=== PATIENT | male | born 1995 | race Hispanic/Latino ===

== ENCOUNTER 2016-12-20 10:41 | Emergency (ER) | payer OTHER ==
[2016-12-20] MEDS ORDERED: LIDOCAINE 1% 50 ML VIAL INJ ONE (10:53)
[2016-12-20] MEDS ORDERED: LIDOCAINE 1% 10 ML VIAL INJ ONE (10:53)
--- NOTE | 2016-12-20 11:04 | ED.PDOC ---
History of Present Illness - General Chief Complaint: Upper Extremity Injury Stated Complaint: finger cut with table saw Time Seen by Provider: 12/20/16 11:01 Source: patient Exam Limitations: no limitations - History of Present Illness Initial Comments: Davion Mancera Pair 21 y/o male accidentally injure his left middle finger at work [employer] /window with table saw-laceration. Occurred: just prior to arrival Pain - Upper Extremity: severe: Hand, left - left middle finger Method of Injury: incised Improving Factors: rest Worsening Factors: movement Allergies/Adverse Reactions: Allergies NO KNOWN ALLERGY Allergy (Unverified 12/02/12 13:44) Home Medications: Ambulatory Orders Acetaminophen W/ Codeine [Tylenol W/ CODEINE #3] 1 ea PO Q4HR #20 12/20/16 Cephalexin 1,000 mg PO BID #30 cap 12/20/16 Review of Systems - Review of Systems Constitutional: States: no symptoms reported EENTM: States: no symptoms reported Respiratory: States: no symptoms reported Cardiology: States: no symptoms reported Musculoskeletal: States: see HPI Skin: States: see HPI Past Medical History (General) - Patient Medical History Hx Seizures: No Hx Asthma: No Hx Hypertension: No Hx Gastroesophageal Reflux: No Hx MRSA: No Family Medical History - Family History Father Family History: No Known Mother Family History: No Known Physical Exam - Physical Exam General Appearance: Alert, No apparent distress Eyes, Ears, Nose, Throat Exam: PERRL/EOMI, TMs normal Neck: supple Cardiovascular/Respiratory: regular rate, rhythm, no M/R/G, normal breath sounds Abdominal Exam: non-tender, no organomegaly Back Exam: no vertebral tenderness Elbow/Forearm Exam: no evidence of injury Wrist Exam: no evidence of injury Hand Exam: deformity, laceration - partial tissue loss /nail avulsion half of distal phalanx dorsal aspect left middle finger, nail injury Neuro/Tendon: normal sensation, normal motor functions Mental Status: alert, oriented x 3 Skin Exam: normal color, warm/dry Progress - Progress Progress: 12/20/16 11:43 Vital Signs - 8 hr 12/20/16 10:43 Temperature 98.9 F Pulse Rate [ 86 right brachial] Respiratory 18 Rate Blood Pressure 148/82 [right brachial ] O2 Sat by Pulse 96 Oximetry - EKG/XRAY/CT XRAY: middle finger left-partial avulsion/open fracture distal phalanx middle finger Departure - Departure Clinical Impression: Fingernail avulsion, partial Qualifiers: Encounter type: initial encounter Qualified Code(s): S61.309A - Unspecified open wound of unspecified finger with damage to nail, initial encounter Finger fracture, left Qualifiers: Encounter type: initial encounter Finger: middle finger Fracture type: open Phalanx: distal Fracture alignment: nondisplaced Qualified Code(s): S62.663B - Nondisplaced fracture of distal phalanx of left middle finger, initial encounter for open fracture Time of Disposition: 11:12 Disposition: Discharge to Home or Self Care Condition: Fair Departure Forms: ED Discharge - Pt. Copy, Patient Portal Self Enrollment Instructions: DI for Nail Avulsion Injury, DI for Avulsion Fracture Prescriptions: Acetaminophen W/ Codeine [Tylenol W/ CODEINE #3] 1 ea PO Q4HR #20 Cephalexin 1,000 mg PO BID #30 cap Home Medications: Ambulatory Orders Acetaminophen W/ Codeine [Tylenol W/ CODEINE #3] 1 ea PO Q4HR #20 12/20/16 Cephalexin 1,000 mg PO BID #30 cap 12/20/16 Additional Instructions: NEED TO CALL (hand specialist) Friday12/23/2016 nurse had md phone number -patient to call Transfer to Outside Facility - Transfer Information Accepting Facility: [facility] Reason for Transfer: required specialist not available
[2016-12-20 11:07] VITALS: TEMP 98.9
[2016-12-20] MEDS ORDERED: ceFAZolin SODIUM 1 GM VIAL IM ONE (11:12)
[2016-12-20] MEDS ORDERED: TETANUS,DIPHTHERIA,PERTUSSIS 1 EA SYG IM ONE (11:12)
--- NOTE | 2016-12-20 11:26 | RAD ---
EXAM DESCRIPTION: Fingers,Left CLINICAL HISTORY: 21 years Male, table saw injury COMPARISON: None. FINDINGS: Three-view left third digit demonstrate partial amputation of the tip of the third digit through the midportion of the tuft of the third distal phalanx. Obvious soft tissue defect. No radiopaque foreign body. IMPRESSION: Acute partial amputation/open fracture Electronically signed by: Juanito Mancini MD 12/20/2016 11:25 AM CDT
[2016-12-20] MEDS ORDERED: HYDROcodone 10MG/APAP 325MG 1 EA TAB PO ONE (11:42)
[2016-12-20] MEDS ORDERED: IBUPROFEN 200 MG TAB PO ONE (11:49)
[2016-12-20 12:13] VITALS: BP 146/71; O2SAT 99
== END 2016-12-20 12:08 | disposition home or self-care (01) ==
LOC: ER 10:41
DX: S62.663B Nondisplaced fracture of distal phalanx of left middle finger, initial encounter for open fracture (principal); Z23 Encounter for immunization; W29.8XXA Contact with other powered hand tools and household machinery, initial encounter; Y92.69 Other specified industrial and construction area as the place of occurrence of the external cause; Y99.0 Civilian activity done for income or pay
CPT/HCPCS: 73140; 90471; 90715; J0690

== ENCOUNTER → 2017-10-28 | Outpatient (CLI) | payer OTHER ==
--- NOTE | 2017-10-28 15:55 | RAD ---
EXAM DESCRIPTION: Ankle,Left 2 Views CLINICAL HISTORY: 22 years Male, LEFT ANKLE INJURY COMPARISON: None available. TECHNIQUE: AP and lateral radiographs. FINDINGS: The visualized bones appear well mineralized. No acute fracture or dislocation. Significant lateral soft tissue swelling is noted. IMPRESSION: Significant lateral soft tissue swelling is noted. Electronically signed by: Yusuf Altman MD 10/28/2017 3:54 PM CDT
== END ==
LOC: RAD 15:13
PROVIDERS: ATTEND Nurse Practitioner Family
DX: S95.80 Unspecified injury of other blood vessels at ankle and foot level (principal)

== ENCOUNTER 2019-06-18 09:07 | Emergency (ER) | payer SELFPAY ==
[2019-06-18] MEDS ORDERED: KETOROLAC TROMETHAMINE INJ 30 MG/ML VIAL IV ONE (09:16)
[2019-06-18] MEDS ORDERED: ONDANSETRON INJ 4 MG/2 ML VIAL IV ONE (09:16)
--- NOTE | 2019-06-18 09:20 | ED.PDOC ---
History of Present Illness - General Chief Complaint: Problem Stated Complaint: Bilat flank pain, painful urination Time Seen by Provider: 06/18/19 09:14 Source: patient Additional Information: 19yo M presents with acute L sided flank pain onset today. The patient reports the pain is cramping in nature and radiates from the back to the front. He has hx of similar pain with renal stones. Pt has extensive hx of past renal stone issues. No associated fever, cough, congestion, diarrhea or discharge. No other reported issues. - History of Present Illness Timing/Duration: this morning Quality: moderate Allergies/Adverse Reactions: Allergies NO KNOWN ALLERGY Allergy (Unverified 12/02/12 13:44) Home Medications: Ambulatory Orders Acetaminophen W/ Codeine [Tylenol W/ CODEINE #3] 1 ea PO Q4HR #20 12/20/16 Cephalexin 1,000 mg PO BID #30 cap 12/20/16 Promethazine Tab [Phenergan Tablet] 25 mg PO Q6HRS PRN #12 tab 06/18/19 Review of Systems - Review of Systems Constitutional: Denies: chills, fever Respiratory: Denies: cough, short of breath Cardiology: Denies: chest pain, palpitations Gastrointestinal/Abdominal: States: abdominal pain, nausea. Denies: diarrhea, vomiting Genitourinary: Denies: dysuria, hematuria Musculoskeletal: States: back pain. Denies: joint pain Skin: States: no symptoms reported Neurological: States: no symptoms reported Hematologic/Lymphatic: States: no symptoms reported Past Medical History (General) - Patient Medical History Hx Seizures: No Hx Asthma: No Hx Cardiac Disorders: No Hx Hypertension: No Hx Diabetes: No Hx Gastroesophageal Reflux: No Hx MRSA: No - Vaccination History Hx Tetanus, Diphtheria Vaccination: Yes - 8 yrs Family Medical History - Family History Mother Family History: No Known Father Family History: No Known Physical Exam - Physical Exam General Appearance: Alert, Well Developed Eyes, Ears, Nose, Throat Exam: PERRL/EOMI, normal ENT inspection Neck: non-tender, full range of motion Cardiovascular/Respiratory: regular rate, rhythm, normal peripheral pulses Gastrointestinal/Abdominal: non tender, soft, other - L flank tenderness, mild Back Exam: normal inspection, no vertebral tenderness Extremity: normal range of motion, non-tender Neurologic: no motor/sensory deficits, alert, oriented x 3 Skin Exam: normal color, warm/dry Progress - Progress Progress: 06/18/19 10:42 [place] searched 06/18/19 10:46 CT demonstrates 5mm distal renal stone. Pain well tolerated. Pt to follow up with a urologist for ongoing assessment. No fever. Results discussed. Return warnings discussed. It was a pleasure to care for the patient today. 06/18/19 10:47 Ivan Moffett MD. #[id number] - Results/Orders Results/Orders: 06/18/19 10:00 Urine Culture Stat Laboratory Results - last 24 hr 06/18/19 06/18/19 06/18/19 09:26 09:26 10:00 WBC 6.0 RBC 5.16 Hgb 15.5 Hct 45.7 MCV 88.5 MCH 30.0 MCHC 33.9 RDW 13.2 Plt Count 209 MPV 8.9 Absolute Neuts (auto) 3.20 Absolute Lymphs (auto) 2.00 Absolute Monos (auto) 0.50 Absolute Eos (auto) 0.20 Absolute Basos (auto) 0.10 Neutrophils % 53.0 Lymphocytes % 33.3 Monocytes % 8.7 Eosinophils % 3.9 Basophils % 1.1 Sodium 135 Potassium 3.7 Chloride 101 Carbon Dioxide 25 Anion Gap 12.7 BUN 10 Creatinine 1.03 BUN/Creatinine Ratio 9.7 L Random Glucose 126 H Serum Osmolality 270.7 L Calcium 8.9 Total Bilirubin 0.5 AST 15 ALT 14 Alkaline Phosphatase 52 Serum Total Protein 6.9 Albumin 4.3 Globulin 2.6 Albumin/Globulin Ratio 1.7 Urine Color Yellow Urine Appearance Sl cloudy Urine pH 5.5 Ur Specific [place] 1.020 Urine Protein 30 Urine Glucose (UA) Negative Urine Ketones Negative Urine Blood Large H Urine Nitrite Negative Urine Bilirubin Negative Urine Urobilinogen 0.2 Ur Leukocyte Esterase Small H Urine RBC >50 H Urine WBC Tntc H Ur Epithelial Cells 0 Urine Bacteria 1+ Urine Mucus Small - EKG/XRAY/CT CT: CT Abd Pelvis: 5mm distal ureteral stone. See formal read. Departure - Departure Clinical Impression: Left nephrolithiasis, Acute left flank pain Time of Disposition: 10:33 Disposition: Discharge to Home or Self Care Condition: Fair Departure Forms: ED Discharge - Pt. Copy, Patient Portal Self Enrollment Instructions: DI for Kidney Stones Prescriptions: Promethazine Tab [Phenergan Tablet] 25 mg PO Q6HRS PRN #12 tab PRN Reason: Nausea Home Medications: Ambulatory Orders Acetaminophen W/ Codeine [Tylenol W/ CODEINE #3] 1 ea PO Q4HR #20 12/20/16 Cephalexin 1,000 mg PO BID #30 cap 12/20/16 Promethazine Tab [Phenergan Tablet] 25 mg PO Q6HRS PRN #12 tab 06/18/19 Additional Instructions: Recommend the patient follow up with a Urologist within 1 week for ongoing evaluation.
--- NOTE | 2019-06-18 09:56 | CT ---
EXAM DESCRIPTION: Abdoment/Pelvis w/o Contrast CLINICAL HISTORY: Left flank pain COMPARISON: None. TECHNIQUE: Noncontrast transaxial CT images of the abdomen and pelvis are obtained. This exam was performed according to our departmental dose-optimization program, which includes automated exposure control, adjustment of the mA and/or kV according to patient size and/or use of iterative reconstruction technique . FINDINGS: Visualized lung bases are unremarkable. Given limitations of a noncontrast exam the liver, spleen, pancreas, adrenal glands, gallbladder, and abdominal vasculature is unremarkable. Increased attenuation is seen in the calyces of the kidneys bilaterally. Several focal nonobstructing calcifications are seen in the mostly mid pole calyces of the right kidney measuring maximum 1.6 cm. No right ureteral calcification or obstruction. Tiny punctate 1 mm nonobstructing calcifications are seen in lower pole calyces of the left kidney. Mild left hydronephrosis and hydroureter. AP diameter of the renal pelvis measures 15 mm. A distal 5 mm ureteral calcification at the ureterovesical junction is seen. Urinary bladder is contracted and not well evaluated. Prostate is normal. Stomach, appendix, small bowel, and colon show no acute findings. No pathologically enlarged abdominal or retroperitoneal lymphadenopathy. No free intraperitoneal air. Small fat-containing periumbilical hernia. Osseous structures show no aggressive bony lesions. IMPRESSION: Mild left hydronephrosis is seen secondary to a 5 mm distal ureteral calcification. Moderate right and minimal left nonobstructing nephrolithiasis is seen. Electronically signed by: Ellis Neville MD 06/18/2019 9:54 AM CDT
[2019-06-18 10:06] VITALS: O2SAT 97
[2019-06-18 12:12] VITALS: BP 124/81; TEMP 97.6
== END 2019-06-18 11:06 | disposition home or self-care (01) ==
LOC: ER 09:07
DX: N13.2 Hydronephrosis with renal and ureteral calculous obstruction (principal); Z87.442 Personal history of urinary calculi
CPT/HCPCS: 74176; 80053; 81001; 85025; 87086; J1885; J2405

== ENCOUNTER 2019-06-29 08:17 | Emergency (ER) | payer SELFPAY ==
[2019-06-29] MEDS ORDERED: ONDANSETRON INJ 4 MG/2 ML VIAL IV ONE (08:30)
[2019-06-29] MEDS ORDERED: SODIUM CHLORIDE 0.9% (FLUSH) 10 ML SYG IV PRN (08:30)
[2019-06-29] MEDS ORDERED: SODIUM CHLORIDE 0.9% 1000ML 1,000 ML IVS PRN (08:30)
[2019-06-29] MEDS ORDERED: LIDOCAINE 1% MPF 5 ML VIAL INJ ONE (08:32)
[2019-06-29] MEDS ORDERED: SODIUM CHLORIDE 0.9% 1000ML 1,000 ML IVS ONE (08:32)
[2019-06-29] MEDS ORDERED: LIDOCAINE 2% 100 MG/5 ML SYG IV ONE (08:57)
[2019-06-29] MEDS ORDERED: SODIUM CHLORIDE 0.9% 50ML 50 ML ONE (09:12)
[2019-06-29] MEDS ORDERED: KETOROLAC TROMETHAMINE INJ 30 MG/ML VIAL IV ONE (09:27)
--- NOTE | 2019-06-29 09:38 | ED.PDOC ---
History of Present Illness - General Chief Complaint: Problem Stated Complaint: Left flank pain Time Seen by Provider: 06/29/19 08:23 Source: patient, RN notes reviewed, Vital Signs reviewed, old records - From his previous ER visit on 06/18/2019 Exam Limitations: no limitations - History of Present Illness Initial Comments: Patient is a 24-year-old white male who presents with complaints of left flank pain. This started back on 06/18/2019 and he was seen here and diagnosed with a kidney stone. Patient states this is similar to the pain he has had with previous kidney stones. Patient's pain has continued to worsen and he is not obtaining any relief at this point in time. The pain is sharp and stabbing in nature. It is waxing and waning. It is moderate to severe intensity. There is radiation of the pain toward his left groin. Nothing makes the pain better or worse. Patient denies any headaches, blurry vision, chest pain, shortness of breath, vomiting or diarrhea. Patient denies any paresthesias or saddle anesthesia. Patient is also complaining of a stinging sensation with urination. This is been ongoing since he was seen on 06/18/2019. Timing/Duration: week - 2 weeks Quality: moderate, stabbing, waxing/waning Onset Location: left flank Radiation: groin Activites at Onset: none Prior abdominal problems: similar symptoms - History of kidney stones Sexual intercourse history: other - Noncontributory Improving Factors: nothing Worsening Factors: nothing Associated Symptoms: dysuria, lower back pain, urinary frequency Allergies/Adverse Reactions: Allergies NO KNOWN ALLERGY Allergy (Unverified 12/02/12 13:44) Home Medications: Ambulatory Orders Acetaminophen W/ Codeine [Tylenol W/ CODEINE #3] 1 ea PO Q4HR #20 12/20/16 Cephalexin 1,000 mg PO BID #30 cap 12/20/16 Promethazine Tab [Phenergan Tablet] 25 mg PO Q6HRS PRN #12 tab 06/18/19 Tamsulosin HCl [Flomax] 0.4 mg PO QPM #10 cap 06/29/19 Tramadol HCl [Ultram] 50 mg PO Q6H #20 tab 06/29/19 Review of Systems - Review of Systems Constitutional: States: no symptoms reported, see HPI. Denies: chills, fever, malaise, weakness EENTM: States: no symptoms reported. Denies: blurred vision, nose congestion, throat pain, mouth pain Respiratory: States: no symptoms reported. Denies: cough, short of breath Cardiology: States: no symptoms reported. Denies: chest pain, palpitations Gastrointestinal/Abdominal: States: see HPI, abdominal pain. Denies: diarrhea, nausea, vomiting Genitourinary: States: see HPI, dysuria, frequency. Denies: hematuria Musculoskeletal: States: see HPI, back pain - Left flank Skin: States: no symptoms reported. Denies: change in color, rash Neurological: States: no symptoms reported. Denies: numbness, tingling, weakness Endocrine: States: no symptoms reported. Denies: intolerance to cold, intolerance to heat Hematologic/Lymphatic: States: no symptoms reported. Denies: anemia, easy bleeding, easy bruising All other Systems: Reviewed and Negative, No Change from Baseline Past Medical History (General) - Patient Medical History Hx Seizures: No Hx Stroke: No Hx Asthma: No Hx of COPD: No Hx Cardiac Disorders: No Hx Hypertension: No Hx Diabetes: No Hx Gastroesophageal Reflux: No Hx Cancer: No Hx MRSA: No Hx Other PMH: Yes - Kidney stones Surgical History: other - Vaccination History Hx Tetanus, Diphtheria Vaccination: Yes - 8 yrs Hx Influenza Vaccination: No Hx Pneumococcal Vaccination: No - Social History Hx Tobacco Use: Yes Hx Alcohol Use: Yes Hx Substance Use: No Hx Substance Use Treatment: No Hx Depression: No - Female History Patient : No Family Medical History - Family History Mother Family History: No Known Living Status: Still Living Hx Family Diabetes: Yes - Type I Father Family History: No Known Physical Exam - Physical Exam General Appearance: Alert, Anxious, Comfortable, Well Developed, Well Groomed, Well Hydrated, Well Nourished Eyes, Ears, Nose, Throat Exam: PERRL/EOMI, normal ENT inspection, pharynx normal Neck: non-tender, full range of motion, supple, normal inspection Cardiovascular/Respiratory: regular rate, rhythm, no M/R/G, normal peripheral pulses, no JVD, normal breath sounds, no respiratory distress Gastrointestinal/Abdominal: normal bowel sounds, non tender, soft, no organomegaly, no pulsatile mass Back Exam: normal inspection, no vertebral tenderness, CVA tenderness (L) Extremity: normal range of motion, non-tender, normal inspection, no pedal edema 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 06/29/19 12:13 I have consulted with Dr. Odin Whitman, urology, who recommends Flomax and follow-up in his office within the next week. He recommends good fluid intake and immediate follow-up should the patient become febrile or have signs of urinary tract infection. I have reviewed the lab work which shows no urinary tract infection and the CT scan which shows that the stone has not moved. Plan on placing patient on Flomax. We will prescribe some Ultram for pain control. I have discussed this plan of care with the patient and he voices understanding and agreement. Plan on discharge home at this time. Wiliam Manuel M.D. #[id number] - Results/Orders Results/Orders: EXAM DESCRIPTION: Abdoment/Pelvis w/o Contrast: Computed Tomography. CLINICAL HISTORY: left flank pain. Stone in distal left ureter with left mild hydronephrosis and multiple intrarenal stones right kidney on the prior study. COMPARISON: CT scan abdomen and pelvis June 17. TECHNIQUE: Spiral-axial scans at 2.5 x 2.5 mm intervals through the abdomen and pelvis, prone position. Coronal and sagittal 2.0 mm reconstructions. No IV or oral contrast. Total Exam DLP: 726 mGy-cm. This exam was performed according to our departmental CT dose- optimization program which includes automated exposure control, adjustment of the mA and/or kV according to patient size and/or use of iterative reconstruction technique; to reduce radiation dose to as low as reasonably achievable (ALARA). FINDINGS: Kidneys, Ureters and Bladder: The 5 mm stone in the distal left ureter on the prior study is now in the left ureterovesical junction, not in the urinary bladder as demonstrated on the prone transverse scan. Faceted margin on the stone. No other radiodense objects in the urinary bladder. No bladder wall thickening. Mild distal left hydroureter and distal periureteral edema. No left hydronephrosis or perirenal stranding. Trace calcification most likely a small 2 mm inferior collecting system stone. Multiple radiodense stones again demonstrated in the mid and superior collecting system of the right kidney with no hydronephrosis, no perirenal fatty stranding, and no right hydroureter. Pelvic Organs: Prostate gland abutting the seminal vesicles and urinary bladder base. Minimal fluid in the anterior peritoneal reflection. Lung and pleura bases: Negative. Liver, spleen, stomach, and adrenal glands: Liver almost 20 cm long axis of the right lobe. Stomach and other solid organs are negative. Pancreas, Gallbladder, Ducts: Gallbladder visualized. Pancreas and ducts negative. Aorta: Unremarkable. Small Bowel: Negative. Terminal Ileum/Cecum: Moderate fecal distention of the cecum. Appendix not seen. Colon: Moderate fecal matter throughout. Minimal diverticula distally with no complications. Mesentery: Unremarkable. Spine and Bony Pelvis: Negative. Abdominal Wall/Back Soft Tissues: Unremarkable. IMPRESSION: 1. 5 mm stone with multifaceted margin in the left ureterovesical junction, with minimal distal movement since the prior CT scan. Distal left ureteral distention and periureteral edema. No hydronephrosis left or perirenal stranding. Multiple irregular stones stable in the right kidney. No radiodense stones or dilation right ureter. No radiodense stones in the urinary bladder. 2. Stable diverticulosis with no complications. 3. Stable hepatomegaly. No ascites. Electronically signed by: Tuan Vergara MD 06/29/2019 11:32 AM 06/29/19 08:30 Sodium Chloride 0.9% (Flush) [Saline Flush Syringe] 10 ml IV PRN PRN Sodium Chloride 0.9% 1000ML [Ns 1000 ml] 1,000 ml IVS .QD Laboratory Results - last 24 hr 06/29/19 06/29/19 06/29/19 08:40 08:40 09:50 WBC 5.9 RBC 5.25 Hgb 15.9 Hct 47.3 MCV 90.0 MCH 30.3 MCHC 33.7 RDW 13.1 Plt Count 220 MPV 8.9 Absolute Neuts (auto) 3.20 Absolute Lymphs (auto) 1.90 Absolute Monos (auto) 0.50 Absolute Eos (auto) 0.20 Absolute Basos (auto) 0.10 Neutrophils % 53.6 Lymphocytes % 32.9 Monocytes % 8.9 Eosinophils % 3.6 Basophils % 1.0 Sodium 137 Potassium 3.2 L Chloride 102 Carbon Dioxide 27 Anion Gap 11.2 L BUN 10 Creatinine 1.00 BUN/Creatinine Ratio 10.0 Random Glucose 105 Serum Osmolality 273.2 L Calcium 9.2 Urine Color Yellow Urine Appearance Clear Urine pH 6.0 Ur Specific [place] 1.010 Urine Protein Negative Urine Glucose (UA) Negative Urine Ketones Negative Urine Blood Trace-intact H Urine Nitrite Negative Urine Bilirubin Negative Urine Urobilinogen 0.2 Ur Leukocyte Esterase Trace H Urine RBC 0-1 Urine WBC 1-3 Ur Epithelial Cells 0-1 Urine Bacteria 0 Departure - Departure Clinical Impression: Ureterolithiasis, Renal colic on left side, Hydronephrosis concurrent with and due to calculi of kidney and ureter Time of Disposition: 12:15 Disposition: Discharge to Home or Self Care Condition: Good Departure Forms: ED Discharge - Pt. Copy, Patient Portal Self Enrollment Instructions: DI for Kidney Stones Diet: resume usual diet Activity: increase activity as tolerated Referrals: FLOYD WHITMAN MD [Referring] - 1-5 Days Prescriptions: Tamsulosin HCl [Flomax] 0.4 mg PO QPM #10 cap Tramadol HCl [Ultram] 50 mg PO Q6H #20 tab Home Medications: Ambulatory Orders Acetaminophen W/ Codeine [Tylenol W/ CODEINE #3] 1 ea PO Q4HR #20 12/20/16 Cephalexin 1,000 mg PO BID #30 cap 12/20/16 Promethazine Tab [Phenergan Tablet] 25 mg PO Q6HRS PRN #12 tab 06/18/19 Tamsulosin HCl [Flomax] 0.4 mg PO QPM #10 cap 06/29/19 Tramadol HCl [Ultram] 50 mg PO Q6H #20 tab 06/29/19
[2019-06-29 09:43] VITALS: O2SAT 97
--- NOTE | 2019-06-29 11:34 | CT ---
EXAM DESCRIPTION: Abdoment/Pelvis w/o Contrast: Computed Tomography. CLINICAL HISTORY: left flank pain. Stone in distal left ureter with left mild hydronephrosis and multiple intrarenal stones right kidney on the prior study. COMPARISON: CT scan abdomen and pelvis June 17. TECHNIQUE: Spiral-axial scans at 2.5 x 2.5 mm intervals through the abdomen and pelvis, prone position. Coronal and sagittal 2.0 mm reconstructions. No IV or oral contrast. Total Exam DLP: 726 mGy-cm. This exam was performed according to our departmental CT dose-optimization program which includes automated exposure control, adjustment of the mA and/or kV according to patient size and/or use of iterative reconstruction technique; to reduce radiation dose to as low as reasonably achievable (ALARA). FINDINGS: Kidneys, Ureters and Bladder: The 5 mm stone in the distal left ureter on the prior study is now in the left ureterovesical junction, not in the urinary bladder as demonstrated on the prone transverse scan. Faceted margin on the stone. No other radiodense objects in the urinary bladder. No bladder wall thickening. Mild distal left hydroureter and distal periureteral edema. No left hydronephrosis or perirenal stranding. Trace calcification most likely a small 2 mm inferior collecting system stone. Multiple radiodense stones again demonstrated in the mid and superior collecting system of the right kidney with no hydronephrosis, no perirenal fatty stranding, and no right hydroureter. Pelvic Organs: Prostate gland abutting the seminal vesicles and urinary bladder base. Minimal fluid in the anterior peritoneal reflection. Lung and pleura bases: Negative. Liver, spleen, stomach, and adrenal glands: Liver almost 20 cm long axis of the right lobe. Stomach and other solid organs are negative. Pancreas, Gallbladder, Ducts: Gallbladder visualized. Pancreas and ducts negative. Aorta: Unremarkable. Small Bowel: Negative. Terminal Ileum/Cecum: Moderate fecal distention of the cecum. Appendix not seen. Colon: Moderate fecal matter throughout. Minimal diverticula distally with no complications. Mesentery: Unremarkable. Spine and Bony Pelvis: Negative. Abdominal Wall/Back Soft Tissues: Unremarkable. IMPRESSION: 1. 5 mm stone with multifaceted margin in the left ureterovesical junction, with minimal distal movement since the prior CT scan. Distal left ureteral distention and periureteral edema. No hydronephrosis left or perirenal stranding. Multiple irregular stones stable in the right kidney. No radiodense stones or dilation right ureter. No radiodense stones in the urinary bladder. 2. Stable diverticulosis with no complications. 3. Stable hepatomegaly. No ascites. Electronically signed by: Tuan Vergara MD 06/29/2019 11:32 AM CDT
[2019-06-29 12:43] VITALS: BP 122/75; TEMP 97.5
== END 2019-06-29 12:35 | disposition home or self-care (01) ==
LOC: ER 08:17
DX: N13.2 Hydronephrosis with renal and ureteral calculous obstruction (principal); Z87.442 Personal history of urinary calculi; Z87.891 Personal history of nicotine dependence
CPT/HCPCS: 36415; 74176; 80048; 81001; 85025; A4216; J1885; J2405; J7030